=== PATIENT | male | born 1990 | race Caucasian/White ===

== ENCOUNTER 2018-11-25 09:02 | Emergency (ER) | payer SELFPAY ==
[~2018-11-25] VITALS: Ht 175.3 cm; Wt 77.1 kg
[2018-11-25 09:35] VITALS: BP 121/58
[2018-11-25] MEDS ORDERED: CEPH-264 PO (10:04)
[2018-11-25] MEDS ORDERED: MUPI22OI2 TP ×2 (10:04→17:01)
--- NOTE | 2018-11-25 10:04 | PHYS DOC ---
Past Medical History Past Medical History: No Pertinent History (SINCERE GONCALVES APRN) Past Surgical History: No Surgical History (SINCERE GONCALVES APRN) Smoking: Cigarettes, 1 Pack Per Day Alcohol Use: None Drug Use: Marijuana (daily) (SINCERE GNOCALVES APRN) Adult General Chief Complaint Chief Complaint: INSECT BITE HPI HPI Patient is a 28 year old male who presents to the ER with complaints of a red, tender, warm area to his right lower leg for the last 4 days. Pt states it was an insect bite that itched at first. Pt states the area is now draining bloody pus and is very tender to touch. Pt rates his pain a 10/10 on the pain scale, the pain increases with touch, there are no alleviating factors. (SINCERE GONCALVES APRN) Review of Systems Review of Systems Constitutional: Denies fever or chills [] Musculoskeletal: Denies back pain or joint pain [] Integument: Denies rash, See HPI Neurologic: Denies headache, focal weakness or sensory changes [] Complete systems were reviewed and found to be within normal limits, except as documented in this note. (SINCERE GONCALVES APRN) Allergies Allergies Allergies Coded Allergies Type Severity Reaction Last Updated Verified No Known Drug Allergies 11/25/18 No (ATUL HUFF MD) Physical Exam Physical Exam Constitutional: Well developed, well nourished, no acute distress, non-toxic appearance. [] HENT: Normocephalic, atraumatic, bilateral external ears normal, nose normal. [] Eyes: PERRLA, EOMI, conjunctiva normal, no discharge. [] Neck: Normal range of motion, no stridor. [] Cardiovascular:Heart rate regular rhythm Lungs & Thorax: verbalized an understanding of home care, medications, follow-up, and return to ED instructions and was in agreement with the plan of care. Skin: Warm, dry, 6 cm area of erythema to RLE with central scabbing, localized edema, no active drainage consistent with infected insect bite and cellulitis Extremities: No cyanosis, no clubbing, ROM intact, no edema. [] Neurologic: Alert and oriented X 3, no focal deficits noted. [] Psychologic: Affect normal, judgement normal, mood normal. [] (SINCERE GONCALVES APRN) Current Patient Data Vital Signs Vital Signs Date Time Temp Pulse Resp B/P (MAP) Pulse Ox O2 Delivery O2 Flow Rate FiO2 11/25/18 09:35 98.6 92 14 121/58 (79) 97 Room Air 98.6 (ATUL HUFF MD) EKG EKG [] (SINCERE GONCALVES APRN) Radiology/Procedures Radiology/Procedures [] (SINCERE GONCALVES APRN) Course & Med Decision Making Course & Med Decision Making Pertinent Labs and Imaging studies reviewed. (See chart for details) [] (SINCERE GONCALVES APRN) Course & Med Decision Making Staff Physician Addendum: I was working in the ER during the course of this patient's visit. I was available for consultation as needed, but I was not directly involved in the care of this patient. (ATUL HUFF MD) Dragon Disclaimer Dragon Disclaimer This electronic medical record was generated, in whole or in part, using a voice recognition dictation system. (SINCERE GONCALVES APRN) Departure Departure Impression: Primary Impression: Cellulitis of right anterior lower leg Additional Impression: Infected insect bite of lower extremity Disposition: 01 HOME, SELF-CARE Condition: STABLE Referrals: NO PCP (PCP) Patient Instructions: Cellulitis, [id number], Insect Bite, [id number] Additional Instructions: Fill the prescriptions and use as directed. Apply warm moist heat every 1-2 hours. Follow up with your primary care doctor or return to ER in 1-2 days for wound recheck. Scripts Mupirocin (MUPIROCIN OINTMENT) 22 Gm Oint...g. 1 IDRIS TP TID for WOUND CARE for 7 Days, #1 TUBE 0 Refills Prov: SINCERE GONCALVES APRN 11/25/18 Cephalexin (KEFLEX) 500 Mg Capsule 500 MG PO QID for 7 Days, #28 CAP 0 Refills Prov: SINCERE GONCALVES APRN 11/25/18 Problem Qualifiers Additional Impression: Infected insect bite of lower extremity Encounter type: initial encounter Laterality: right Qualified Codes: S80.861A - Insect bite (nonvenomous), right lower leg, initial encounter; L08.9 - Local infection of the skin and subcutaneous tissue, unspecified; W57.XXXA - Bitten or stung by nonvenomous insect and other nonvenomous arthropods, initial encounter SINCERE GONCALVES APRN Nov 25, 2018 10:04 ATUL HUFF MD Nov 25, 2018 16:37
[2018-11-25] MEDS ORDERED: CEPH500C PO (17:01)
[2018-11-25] MEDS ORDERED: HYDR-2761 PO (17:01)
== END 2018-11-25 10:25 | disposition home or self-care (01) ==
LOC: ER 09:02
DX: S80.861A Insect bite (nonvenomous), right lower leg, initial encounter (principal); L03.115 Cellulitis of right lower limb; F17.210 Nicotine dependence, cigarettes, uncomplicated; W57.XXXA Bitten or stung by nonvenomous insect and other nonvenomous arthropods, initial encounter; Y93.89 Activity, other specified; Y92.89 Other specified places as the place of occurrence of the external cause; Y99.8 Other external cause status
CPT/HCPCS: 99283

== ENCOUNTER 2018-11-25 16:22 | Emergency (ER) | payer SELFPAY ==
[~2018-11-25] VITALS: Ht 175.3 cm; Wt 81.6 kg
[~2018-11-25 16:22] MED LIST: CEPH-264 PO; MUPI22OI2 TP
[2018-11-25 16:52] VITALS: BP 142/58
--- NOTE | 2018-11-25 16:58 | PHYS DOC ---
Past Medical History Past Medical History: No Pertinent History (SINCERE GONCALVES APRN) Past Surgical History: No Surgical History (SINCERE GONCALVES APRN) Alcohol Use: None Drug Use: Marijuana (SINCERE GONCALVES APRN) Adult General Chief Complaint Chief Complaint: INSECT BITE HPI HPI Patient is a 28 year old male who presents to the ER for the second time today with complaints of a red, tender, warm area to his right lower leg for the last 4 days. He states he was unable to wait for his discharge instructions and prescriptions during his prior visit. Pt reports that he first thought the area was an insect bite that itched. Pt states the area is now draining bloody pus and is very tender to touch. Pt rates his pain a 10/10 on the pain scale, the pain increases with touch, there are no alleviating factors. He denies any fever. (SINCERE GONCALVES APRN) Review of Systems Review of Systems Constitutional: Denies fever or chills [] Musculoskeletal: Denies back pain or joint pain [] Integument: See HPI Neurologic: Denies headache, focal weakness or sensory changes [] Complete systems were reviewed and found to be within normal limits, except as documented in this note. (SINCERE GONCALVES APRN) Current Medications Current Medications Current Medications Medications (Trade) Dose Ordered Sig/Robb Start Time Stop Time Status Last Admin Dose Admin Acetaminophen/ Hydrocodone Bitart (Lortab 5/325) 1 tab 1X ONCE 11/25/18 17:15 11/25/18 17:16 DC 11/25/18 17:11 1 TAB (ATUL HUFF MD) Allergies Allergies Allergies Coded Allergies Type Severity Reaction Last Updated Verified No Known Drug Allergies 11/25/18 No (ATUL HUFF MD) Physical Exam Physical Exam Constitutional: Well developed, well nourished, no acute distress, non-toxic appearance. [] HENT: Normocephalic, atraumatic, bilateral external ears normal, nose normal. [] Eyes: PERRLA, EOMI, conjunctiva normal, no discharge. [] Neck: Normal range of motion, no stridor. [] Cardiovascular:Heart rate regular rhythm Lungs & Thorax: Respirations even and unlabored, no retractions, no respiratory distress Skin: Warm, dry, 6 cm area of erythema to RLE with central scabbing, localized edema, no active drainage consistent with infected insect bite and cellulitis Extremities: No cyanosis, no clubbing, ROM intact, no edema. [] Neurologic: Alert and oriented X 3, no focal deficits noted. [] Psychologic: Affect normal, judgement normal, mood normal. [] (SINCERE GONCALVES APRN) Current Patient Data Vital Signs Vital Signs Date Time Temp Pulse Resp B/P (MAP) Pulse Ox O2 Delivery O2 Flow Rate FiO2 11/25/18 17:11 17 99 Room Air 11/25/18 16:52 98.5 95 142/58 (86) 98.5 (ATUL HUFF MD) EKG EKG [] (SINCERE GONCALVES APRN) Radiology/Procedures Radiology/Procedures [] (SINCERE GONCALVES APRN) Course & Med Decision Making Course & Med Decision Making Pertinent Labs and Imaging studies reviewed. (See chart for details) [] (SINCERE GONCALVES APRN) Course & Med Decision Making Staff Physician Addendum: I was working in the ER during the course of this patient's visit. I was available for consultation as needed, but I was not directly involved in the care of this patient. (ATUL HUFF MD) Dragon Disclaimer Dragon Disclaimer This electronic medical record was generated, in whole or in part, using a voice recognition dictation system. (SINCERE GONCALVES APRN) Departure Departure Impression: Primary Impression: Infected insect bite of lower extremity Additional Impression: Cellulitis of right anterior lower leg Disposition: HOME, SELF-CARE Condition: STABLE Referrals: NO PCP (PCP) Patient Instructions: Cellulitis, [id number], Insect Bite, [id number] Additional Instructions: Fill the prescriptions and use as directed. Apply warm moist heat every 1-2 hours. Follow up with your primary care doctor or return to ER in 1-2 days for wound recheck. Scripts Hydrocodone Bit/Acetaminophen (HYDROCODONE-APAP 5-325 ) 1 Tab Tablet 1 TAB PO PRN Q6HRS PRN for PAIN for 2 Days, #8 TAB 0 Refills Prov: SINCERE GONCALVES APRN 11/25/18 Mupirocin (MUPIROCIN OINTMENT) 22 Gm Oint...g. 1 IDRIS TP TID for WOUND CARE for 7 Days, #1 TUBE 0 Refills Prov: SINCERE GONCALVES APRN 11/25/18 Cephalexin (CEPHALEXIN) 500 Mg Capsule 1 CAP PO QID for 7 Days, #28 CAP 0 Refills Prov: SINCERE GONCALVES APRN 11/25/18 Problem Qualifiers Primary Impression: Infected insect bite of lower extremity Encounter type: initial encounter Laterality: right Qualified Codes: S80.861A - Insect bite (nonvenomous), right lower leg, initial encounter; L08.9 - Local infection of the skin and subcutaneous tissue, unspecified; W57.XXXA - Bitten or stung by nonvenomous insect and other nonvenomous arthropods, initial encounter SINCERE GONCALVES APRN Nov 25, 2018 16:58 ATUL HUFF MD Nov 27, 2018 00:10
[2018-11-25] MEDS ORDERED: HYDR-2761 PO (17:01)
[2018-11-25] MEDS ORDERED: MUPI22OI2 TP (17:01)
[2018-11-25] MEDS ORDERED: CEPH500C PO (17:01)
[2018-11-25] MEDS ORDERED: HYDROcodone/APAP 5/325MG 1 TAB TABLET PO ONE (17:15)
== END 2018-11-25 17:17 | disposition home or self-care (01) ==
LOC: ER 16:22
DX: S80.861A Insect bite (nonvenomous), right lower leg, initial encounter (principal); L08.9 Local infection of the skin and subcutaneous tissue, unspecified; W57.XXXA Bitten or stung by nonvenomous insect and other nonvenomous arthropods, initial encounter; Y93.89 Activity, other specified; Y92.89 Other specified places as the place of occurrence of the external cause; Y99.8 Other external cause status
CPT/HCPCS: 99283